=== PATIENT | male | born 1980 | race Two or more races ===

== ENCOUNTER 2023-03-25 11:56 | Emergency (ER) | payer OTHER ==
[2023-03-25] MEDS ORDERED: Ketorolac 60 MG/2 ML SDV IM ONE (12:27)
[2023-03-25] MEDS ORDERED: Acetaminophen/HYDROcodone 325-5 MG Tab PO ONE (12:27)
[2023-03-25] MEDS ORDERED: predniSONE 10 MG Tab PO SCH (12:30)
== END 2023-03-25 12:50 | disposition home or self-care (01) ==
LOC: JD.ED 11:56
DX: M54.42 Lumbago with sciatica, left side (principal); Z79.4 Long term (current) use of insulin; Z79.899 Other long term (current) drug therapy
CPT/HCPCS: 96372; 99283; A9270; J1885; J7512

== ENCOUNTER 2023-07-21 14:44 | Day surgery (SDC) | payer OTHER, BC ==
[2023-07-21] MEDS: HYDROmorphone 0.5 MG/0.5 ML Syringe IVPUSH ONE (15:15)
[2023-07-21] MEDS: Sodium Chloride 0.9% 10 ML Syringe FLUSH PRN ×2 (15:15→15:32)
[2023-07-21] MEDS: Ondansetron 4 MG/2 ML SDV IVPUSH ONE (15:15)
[2023-07-21 15:18] LABS: BASOPHILS ABSOLUTE AUTO 0.1 K/mm3 (0.0-0.2); BASOPHILS PERCENT AUTO 0.5 % (0.0-1.0); EOSINOPHILS ABSOLUTE AUTO 0.2 K/mm3 (0.0-0.4); EOSINOPHILS PERCENT AUTO 1.1 % (0.0-6.0); HEMATOCRIT 46.4 % (42.0-52.0); HEMOGLOBIN 15.5 gm/dl (14.0-18.0); IMMATURE GRAN ABSOLUTE AUTO 0.05 K/mm3 (0.00-0.05); IMMATURE GRAN PERCENT AUTO 0.3 % (0.0-0.4); LYMPHOCYTES ABSOLUTE AUTO 2.7 K/mm3 (1.0-4.8); LYMPHOCYTES PERCENT AUTO 18.3 % (24.0-44.0); MEAN CORPUSCULAR HEMOGLOBIN 28.4 pg (28.0-32.0); MEAN CORPUSCULAR HGB CONC 33.4 g/dl (32.0-36.0); MEAN CORPUSCULAR VOLUME 85.1 fl (83.0-99.0); MEAN PLATELET VOLUME 10.8 fl (9.4-12.4); MONOCYTES ABSOLUTE AUTO 1.3 K/mm3 (0.0-0.8); MONOCYTES PERCENT AUTO 8.5 % (0.0-8.0); NEUTROPHILS ABSOLUTE AUTO 10.7 K/mm3 (1.8-7.7); NEUTROPHILS PERCENT AUTO 71.3 % (41.0-71.0); PLATELET COUNT,PLT 270 K/mm3 (150-400); RED BLOOD CELL COUNT 5.45 M/mm3 (4.52-5.90); WHITE BLOOD CELL COUNT,WBC 15.01 K/mm3 (3.9-11.3)
[2023-07-21 15:30] LABS: A/G RATIO 1.1 (1-2); ALBUMIN 4.1 g/dl (3.4-5.0); ANION GAP 19.4 (5-15); BILIRUBIN TOTAL 0.7 mg/dL (0.2-1.0); CALCIUM 9.3 mg/dL (8.5-10.1); EST CRCL DRUG DOSING (CG) 103.54 mL/min; MAGNESIUM 1.3 mg/dL (1.8-2.4); POTASSIUM,K 3.4 mEq/L (3.5-5.1); PROTEIN TOTAL,TP 7.8 g/dl (6.4-8.2)
[2023-07-21] MEDS: Sodium Chloride 0.9% 45 ML IV SCH (15:32)
[2023-07-21] MEDS: Iopamidol 755 Mg/ML 100 ML Bottle IVPUSH ONE (15:32)
[2023-07-21] MEDS ORDERED: Sodium Chloride 0.9% 1,000 ML IV SCH (15:45)
[2023-07-21 15:59] LABS: APPEARANCE,URINE CLEAR (Clear); BILIRUBIN,URINE NEGATIVE (Negative); COLOR,URINE YELLOW (Yellow); GLUCOSE,URINE NEGATIVE (Negative); KETONES,URINE NEGATIVE (Negative); LEUKOCYTE ESTERASE,URINE NEGATIVE (Negative); NITRITE,URINE NEGATIVE (Negative); OCCULT BLOOD,URINE NEGATIVE (Negative); PROTEIN,URINE NEGATIVE (Negative); UROBILINOGEN,URINE 0.2 (0.2-1.0)
[2023-07-21] MEDS: Sodium Chloride 0.9% 1,000 ML IV SCH (16:09)
[2023-07-21] MEDS: Magnesium Sulfate/Water 2 GM in Premix Bag 1 BAG IV ONE (16:11)
[2023-07-21] MEDS ORDERED: Midazolam 1 MG/ML 2 ML SDV ONE (16:30)
[2023-07-21] MEDS ORDERED: fentaNYL 250 MCG/5 ML SDV ONE (16:30)
[2023-07-21] MEDS ORDERED: Propofol 200 MG/20 ML SDV ONE (16:30)
[2023-07-21] MEDS ORDERED: Rocuronium 50 MG/5 ML Vial ONE ×2 (16:33→19:00)
[2023-07-21] MEDS ORDERED: Ondansetron 4 MG/2 ML SDV ONE (16:33)
[2023-07-21] MEDS ORDERED: Dexamethasone 4 MG/ML 5 ML MDV ONE (16:33)
[2023-07-21] MEDS ORDERED: ePHEDrine 50 MG/ML SDV ONE (16:34)
[2023-07-21] MEDS: Piperacillin/Tazobactam 4.5 GM in Sodium Chloride 0.9% 100 ML IV ONE (17:13)
[2023-07-21] MEDS ORDERED: Ondansetron 4 MG/2 ML SDV IVPUSH PRN (17:46)
[2023-07-21] MEDS ORDERED: HYDROmorphone 0.5 MG/0.5 ML Syringe IVPUSH PRN (17:46)
[2023-07-21] MEDS ORDERED: fentaNYL 100 MCG/2 ML SDV IVPUSH PRN (17:46)
[2023-07-21] MEDS ORDERED: Lactated Ringers 1,000 ML IV ONE ×2 (18:00→18:30)
[2023-07-21] MEDS ORDERED: Sugammadex Sodium 200 MG/2 ML VIAL IV ONE (18:10)
[2023-07-21] MEDS: Lidocaine 1% 30 ML SDV ONE (18:55)
[2023-07-21] MEDS: Bupivacaine 0.5% 30 ML SDV ONE (18:55)
[2023-07-21] MEDS: EPINEPHrine 1 MG/ML SDV ONE (18:55)
== END 2023-07-21 21:35 | disposition home or self-care (01) ==
LOC: JD.ED 14:44 → JD.SDS 16:53
PROVIDERS: ATTEND Surgery
DX: K35.33 Acute appendicitis with perforation, localized peritonitis, and gangrene, with abscess (principal); E10.9 Type 1 diabetes mellitus without complications; I10 Essential (primary) hypertension; F32.A Depression, unspecified; Z79.899 Other long term (current) drug therapy
CPT/HCPCS: 00840; 36415; 71275; 71275-26; 74177; 74177-26; 80053; 81003; 83605; 83690; 83735; 85025; 87040; 88304; 93005; 93010; 96365; 96366; 96368; 96375; 99140; 99285; 99285-25; J0171; J0665; J1100; J1170; J2250; J2405; J2543; J2704; J3010; J3475; J3490; J7030; J7120; Q9967

== ENCOUNTER 2023-09-29 08:56 | Emergency (ER) | payer BC, OTHER ==
[2023-09-29] MEDS: Ketorolac 30 MG/ML SDV IM ONE (10:03)
[2023-09-29] MEDS: oxyCODONE 5 MG Tab PO ONE (12:56)
[2023-09-29] MEDS: Ketorolac 30 MG/ML SDV IVPUSH ONE (14:13)
== END 2023-09-29 14:50 | disposition home or self-care (01) ==
LOC: JD.ED 08:56
DX: M54.50 Low back pain, unspecified (principal); I10 Essential (primary) hypertension; E10.9 Type 1 diabetes mellitus without complications; Z86.16 Personal history of COVID-19; Z79.899 Other long term (current) drug therapy; Z79.4 Long term (current) use of insulin
CPT/HCPCS: 72131; 96372; 99283; A9270; J1885

== ENCOUNTER 2024-05-30 20:46 | Emergency (ER) | payer BC, OTHER ==
[2024-05-30] MEDS: predniSONE 20 MG Tab PO ONE (23:06)
[2024-05-30] MEDS: Ketorolac 15 MG/ML SDV IM ONE (23:15)
[2024-05-30] MEDS: Albuterol 6.7 GM Inhaler INH ONE (23:19)
[2024-05-30 23:21] LABS: BASOPHILS ABSOLUTE AUTO 0.1 K/mm3 (0.0-0.2); BASOPHILS PERCENT AUTO 0.5 % (0.0-1.0); EOSINOPHILS PERCENT AUTO 0.1 % (0.0-6.0); HEMATOCRIT 48.4 % (42.0-52.0); HEMOGLOBIN 16.2 gm/dl (14.0-18.0); IMMATURE GRAN ABSOLUTE AUTO 0.05 K/mm3 (0.00-0.05); IMMATURE GRAN PERCENT AUTO 0.4 % (0.0-0.4); LYMPHOCYTES ABSOLUTE AUTO 2.6 K/mm3 (1.0-4.8); MEAN CORPUSCULAR HEMOGLOBIN 28.4 pg (28.0-32.0); MEAN CORPUSCULAR HGB CONC 33.5 g/dl (32.0-36.0); MEAN CORPUSCULAR VOLUME 84.9 fl (83.0-99.0); MEAN PLATELET VOLUME 10.8 fl (9.4-12.4); MONOCYTES ABSOLUTE AUTO 0.7 K/mm3 (0.0-0.8); MONOCYTES PERCENT AUTO 5.8 % (0.0-8.0); NEUTROPHILS ABSOLUTE AUTO 8.4 K/mm3 (1.8-7.7); NEUTROPHILS PERCENT AUTO 71.2 % (41.0-71.0); PLATELET COUNT,PLT 260 K/mm3 (150-400); WHITE BLOOD CELL COUNT,WBC 11.76 K/mm3 (3.9-11.3)
[2024-05-30 23:43] LABS: ALANINE AMINOTRANSFERASE,ALT 87 U/L (16-63); ALBUMIN 3.9 g/dl (3.4-5.0); ALKALINE PHOSPHATASE 70 U/L (46-116); ANION GAP 13.3 (5-15); ASPARTATE AMNIOTRANSFERASE,AST 27 U/L (15-37); BILIRUBIN TOTAL 0.3 mg/dL (0.2-1.0); BLOOD UREA NITROGEN,BUN 18 mg/dL (7-18); CALCIUM 8.9 mg/dL (8.5-10.1); CARBON DIOXIDE,CO2 25 mEq/L (21-32); CHLORIDE,CL 101 mEq/L (98-107); CREATININE 0.9 mg/dL (0.7-1.3); ESTIMATED GFR 109 mL/min (>60); GLUCOSE RANDOM 281 mg/dL (70-99); POTASSIUM,K 4.3 mEq/L (3.5-5.1); PROTEIN TOTAL,TP 7.9 g/dl (6.4-8.2); SODIUM,NA 135 mEq/L (136-145); TROPONIN I HIGH SENSITIVITY 14 pg/mL (<=76)
== END 2024-05-31 02:05 | disposition home or self-care (01) ==
LOC: JD.ED 20:46
DX: J98.8 Other specified respiratory disorders (principal); E10.65 Type 1 diabetes mellitus with hyperglycemia; R74.01 Elevation of levels of liver transaminase levels; I10 Essential (primary) hypertension; Z86.16 Personal history of COVID-19; Z90.49 Acquired absence of other specified parts of digestive tract; Z87.891 Personal history of nicotine dependence; Z79.4 Long term (current) use of insulin; Z79.51 Long term (current) use of inhaled steroids; Z79.899 Other long term (current) drug therapy
CPT/HCPCS: 36415; 71046; 80053; 84484; 85025; 87428; 93005; 94640; 96372; 99285; A9270; J1885; J7512

== ENCOUNTER 2024-08-14 13:54 | Emergency (ER) | payer OTHER | END 2024-08-14 14:51 | disposition home or self-care (01) | LOC: JD.ED 13:54 | DX: S91.115A Laceration without foreign body of left lesser toe(s) without damage to nail, initial encounter (principal); I10 Essential (primary) hypertension; E11.9 Type 2 diabetes mellitus without complications; Z86.16 Personal history of COVID-19; Z79.899 Other long term (current) drug therapy; Z79.4 Long term (current) use of insulin; Z90.49 Acquired absence of other specified parts of digestive tract; W22.8XXA Striking against or struck by other objects, initial encounter | CPT/HCPCS: 99283; 99284 ==

== ENCOUNTER 2025-01-16 13:48 | Emergency (ER) | payer OTHER ==
[2025-01-16] MEDS ORDERED: Sodium Chloride 0.9% 10 ML Syringe FLUSH PRN (14:35)
[2025-01-16 15:04] LABS: BASOPHILS ABSOLUTE AUTO 0.0 K/mm3 (0.0-0.2); BASOPHILS PERCENT AUTO 0.3 % (0.0-1.0); EOSINOPHILS ABSOLUTE AUTO 0.0 K/mm3 (0.0-0.4); EOSINOPHILS PERCENT AUTO 0.4 % (0.0-6.0); IMMATURE GRAN ABSOLUTE AUTO 0.03 K/mm3 (0.00-0.05); IMMATURE GRAN PERCENT AUTO 0.3 % (0.0-0.4); LYMPHOCYTES ABSOLUTE AUTO 2.3 K/mm3 (1.0-4.8); LYMPHOCYTES PERCENT AUTO 23.4 % (24.0-44.0); MEAN PLATELET VOLUME 11.0 fl (9.4-12.4); MONOCYTES ABSOLUTE AUTO 1.4 K/mm3 (0.0-0.8); MONOCYTES PERCENT AUTO 13.9 % (0.0-8.0); NEUTROPHILS ABSOLUTE AUTO 6.1 K/mm3 (1.8-7.7); NEUTROPHILS PERCENT AUTO 61.7 % (41.0-71.0); NRBC ABSOLUTE 0.00 (0.00-0.02); NRBC PERCENT 0.0 % (0.0-0.2); PLATELET COUNT,PLT 223 K/mm3 (150-400); RED BLOOD CELL COUNT 5.08 M/mm3 (4.52-5.90); WHITE BLOOD CELL COUNT,WBC 9.89 K/mm3 (3.9-11.3)
[2025-01-16 15:42] LABS: A/G RATIO 0.9 (1-2); ALANINE AMINOTRANSFERASE,ALT 63.0 U/L (16-63); ASPARTATE AMNIOTRANSFERASE,AST 20.0 U/L (15-37); BILIRUBIN TOTAL 0.5 mg/dL (0.2-1.0); BLOOD UREA NITROGEN,BUN 11.0 mg/dL (7-18); CARBON DIOXIDE,CO2 27.0 mEq/L (21-32); CHLORIDE,CL 105.0 mEq/L (98-107); CREATININE 1.0 mg/dL (0.7-1.3); EST CRCL DRUG DOSING (CG) 101.45 mL/min; ESTIMATED GFR 96.0 mL/min (>60); GLUCOSE RANDOM 95.0 mg/dL (70-99); POTASSIUM,K 3.7 mEq/L (3.5-5.1); PROTEIN TOTAL,TP 7.1 g/dl (6.4-8.2); SODIUM,NA 139.0 mEq/L (136-145)
[2025-01-16] MEDS: Ketorolac 30 MG/ML SDV IVPUSH ONE (16:23)
[2025-01-16 17:11] LABS: APPEARANCE,URINE CLEAR (Clear); GLUCOSE,URINE NEGATIVE (Negative); OCCULT BLOOD,URINE NEGATIVE (Negative)
[2025-01-16 17:20] LABS: EPITHELIAL CELLS,URINE 0-5 /hpf (0-5)
== END 2025-01-16 17:45 | disposition home or self-care (01) ==
LOC: JD.ED 13:48
DX: B34.9 Viral infection, unspecified (principal); I10 Essential (primary) hypertension; E10.9 Type 1 diabetes mellitus without complications; Z79.899 Other long term (current) drug therapy; Z79.1 Long term (current) use of non-steroidal anti-inflammatories (NSAID); Z86.16 Personal history of COVID-19
CPT/HCPCS: 36415; 71046; 80053; 81001; 82550; 84484; 85025; 85379; 86140; 86308; 87428; 93005; 96374; 99285; J1885; J7030; 93010; 99283